=== PATIENT | female | born 1985 | race Caucasian/White ===

== ENCOUNTER → 2018-11-14 16:40 | Outpatient (CLI) | payer MEDICAID, SELFPAY | PROVIDERS: PCP Emergency Medicine; Visit Provider Emergency Medicine | DX: R07.9 Chest pain, unspecified (principal) | CPT/HCPCS: 93005 ==

== ENCOUNTER → 2018-11-16 08:18 | Outpatient (CLI) | payer MEDICAID, SELFPAY | PROVIDERS: PCP Emergency Medicine; Visit Provider Emergency Medicine | DX: R07.9 Chest pain, unspecified (principal) | CPT/HCPCS: 93017 ==

== ENCOUNTER 2020-07-28 20:13 | Emergency (ER) | payer OTHER, SELFPAY ==
[2020-07-28 20:24] VITALS: BP 127/81; PULSE 81; RESP 17; O2SAT 97; BMI 30.2
[2020-07-28 20:29] VITALS: BP 127/81; PULSE 81; RESP 17; TEMP 36.7; O2SAT 97; BMI 30.3
--- NOTE | 2020-07-28 20:29 | HMH.EDUTC ---
[facility] [place] Disposition Clinical Impression: Sinusitis Qualifiers: Sinusitis location: maxillary Chronicity: acute Recurrence: non-recurrent Qualified Code(s): J01.00 - Acute maxillary sinusitis, unspecified Disposition: Home, Self-Care Condition on Discharge: Good Instructions: DI for Sinusitis Additional Instructions: We have tested you for COVID19. These results should be available tomorrow night/Wednesday morning. Prescriptions: Amoxicillin/Potassium Clav [Augmentin 875-125 Tablet] 1 tab PO Q12H 10 Days #20 tab Transmission Status: Pending to [id number] predniSONE [Prednisone 20mg Tab] 20 mg PO BID 5 Days #10 tab Transmission Status: Pending to [id number] Referrals: Doyle Pastrana [Primary Care Provider] - Time of Disposition: 20:38 Medical Decision Making - Abdulkadir Inquiry Pt receiving controlled substance: No Vital Signs: 07/28/20 20:24 Pulse Rate [Right Brachial] 81 Respiratory Rate 17 Blood Pressure [Right Arm] 127/81 Blood Pressure Mean [Right Arm] 96 Blood Pressure Source [Right Arm] Automatic Cuff Blood Pressure Position [Right Arm] Sitting 02 Sat by Pulse Oximetry 97 Oxygen Delivery Method Room Air [facility] [place] HPI - General Stated complaint: cough dizzy,weakness,congestion Time Seen by Provider: 07/28/20 20:29 Mode of Arrival: Family Vehicle Source of Information: Patient Limitations: No Limitations Description of Symptoms (Recalled from Triage Doc. by RN): began approx 7 days ago with alelrgy/sinus symptoms, cough that was productive and now just presents with intermittent sinus related issues. afebrile. stated she has 6 kids at home and they all had it as well. hasn't been on any steroids or antibiotics recently - History of Present Illness Provider Complaint: Cough, sinus pain and pressure, sore throat, fatigue X 6 days. Unable to smell coffee but also has significant nasal congestion. No fever, body aches, or chills. No vomiting or diarrhea. Onset (ago): day(s) (6) Location: face Consistency: constant Relieving factors: none Exacerbating factors: none Associated symptoms: denies other symptoms Treatments prior to arrival: none - Related Data Home Medications Medication Instructions Recorded Confirmed ranitidine HCl 150 mg tablet 150 mg PO BID tab 11/24/17 12/05/18 loratadine 10 mg tablet PO 30 Days #30 tab 09/20/18 12/05/18 Previous Rx's Medication Instructions Recorded estradiol 2 mg tablet 4 mg PO DAILY #60 tab 10/05/18 norgestimate 0.25 mg-ethinyl 1 tab PO DAILY #28 tab 05/01/19 estradiol 35 mcg tablet Azithromycin [Z-Eliceo 250mg Tab*] 250 mg PO UD DOSE PK #6 tab 07/03/19 predniSONE [Prednisone 20mg 20 mg PO BID 5 Days #10 tab 07/03/19 Tab] ferrous sulfate 325 mg (65 mg 325 mg PO DAILY #30 tab 10/20/19 iron) tablet prenat.vits,graham,rvg-prxy-ovvtk 1 tab PO ONCE #30 tab 10/20/19 levonorgestrel-ethinyl estradiol 1 tab PO DAILY #84 tab 04/01/20 0.1 mg-20 mcg tablet Amoxicillin/Potassium Clav 1 tab PO Q12H 10 Days #20 tab 07/28/20 [Augmentin 875-125 Tablet] predniSONE [Prednisone 20mg 20 mg PO BID 5 Days #10 tab 07/28/20 Tab] Allergies Allergy/AdvReac Type Severity Reaction Status Date / Time codeine Allergy Unknown I-HIVES Verified 12/05/18 10:35 [facility] History - Hepatitis A Screen Attestation statement:: This patient has been screened for Hepatitis A risk factors. I have reviewed the patient's past medical history: Yes Laterality Cases: Bilateral: Other Amputation: No Fractures: No - Social History Smoking Status: Current every day smoker Tobacco Type: cigarettes # Packs/Day (cigarettes): 1 Alcohol Intake: never Occupational Status: employed Housing: house Family Hx:: No significant family history Comment: Father,Mother Alive [employer] history: Spontaneous ROS Obtained: Yes All systems reviewed & no additional complaints - Constitutional Constitutional: Denies body ache, Denies chills, Reports fat
[2020-07-28 20:51] VITALS: BP 127/81; PULSE 81; RESP 17; TEMP 36.7; O2SAT 97
[2020-07-30 08:35] LABS: Covid-19 Nasal PCR Sendout Lex NOT DETECTED
== END 2020-07-28 20:52 | disposition home or self-care (01) ==
PROVIDERS: Emergency Provider Physician Assistant; PCP Family Medicine
DX: J01.00 Acute maxillary sinusitis, unspecified (principal); F17.210 Nicotine dependence, cigarettes, uncomplicated; Z88.5 Allergy status to narcotic agent; Z20.828 Contact with and (suspected) exposure to other viral communicable diseases
CPT/HCPCS: 96372; 99202; J1030; U0004

== ENCOUNTER 2021-11-20 17:59 | Emergency (ER) | payer OTHER, SELFPAY ==
--- NOTE | 2021-11-20 17:55 | ECG_ITS ---
APPROVED REPORT Exam: Resting ECG HR:67 bpm ECG Measurements Heart Rate 67 AXES MO 131 P 55 QRSd 86 QRS 89 QT 424 T 48 QTc 440 Conclusion SINUS RHYTHM NORMAL ECG UNCONFIRMED REPORT Electronically signed by : Sim Melgoza MD 11/20/2021 21:10:53
[2021-11-20 17:59] VITALS: BP 116/81; PULSE 74; RESP 16; TEMP 36.8; O2SAT 99; BMI 23.8
--- NOTE | 2021-11-20 18:35 | XR_ITS ---
PROCEDURE INFORMATION: Exam: XR Chest Exam date and time: 11/20/2021 6:35 PM Age: 36 years old Clinical indication: Sternal or substernal pain; Additional info: Weakness, cp TECHNIQUE: Imaging protocol: XR of the chest. Portable AP upright exam 6:44 p.m. Views: 1 view. COMPARISON: No relevant prior studies available. FINDINGS: Lungs: No acute pulmonary findings. No pulmonary consolidation. Lung volumes within normal limits. Pleural spaces: Unremarkable. No significant pleural effusion. No pneumothorax. Heart/Mediastinum: The cardiac silhouette is normal. Bones/joints: There is no evidence of acute fracture, as visualized. Sternum is not well seen on this portable AP exam. IMPRESSION: No acute findings.
--- NOTE | 2021-11-20 18:52 | HMH.EDGENADL ---
ED Disposition Clinical Impression: COVID-19 virus infection, Atypical chest pain, EKG abnormality Disposition: Home, Self-Care Condition on Discharge: Good Additional Instructions: Rest, drink plenty of fluids. Tylenol or Ibuprofen for fever and/or aches and pains. Monitor your symptoms. IF YOU HAVE AN EMERGENCY WARNING SIGN (INCLUDING TROUBLE BREATHING), SEEK EMERGENCY MEDICAL CARE IMMEDIATELY. COVID-19 Isolation: People with COVID-19 should isolate for 5 days. Then if they are asymptomatic (no symptoms) or their symptoms are resolving (without fever for 24 hours), follow that by 5 days of wearing a mask when around others to minimize the risk of infecting people you encounter. If you test positive for COVID-19 and never develop symptoms, day 0 is the day of your positive viral test (based on the date you were tested) and day 1 is the first full day after your positive test. If you develop symptoms after testing positive, your 5-day isolation period must start over. Day 0 is your first day of symptoms. Day 1 is the first full day after your symptoms developed. What to do: Stay in a separate room from other household members, if possible. Use a separate bathroom, if possible. Avoid contact with other members of the household and pets. Don?t share personal household items, like cups, towels, and utensils. Wear a mask when around other people if able. Additional instructions for CHEST PAIN: See your physician as soon as possible for further evaluation. Return immediately if worsening chest pain, vomiting, shortness of breath, fever, coughing of blood. Referrals: Doyle Pastrana [Primary Care Provider] - - Critical Care Critical Care Time: No Attestation: On 11/20/21, the high probability of a clinically significant, sudden or life threatening deterioration of the following system(s) required my full and direct attention, intervention and personal management. The time I documented below is in addition to time spent performing reported procedures but includes the following listed in this critical care notation. Medical Decision Making - Abdulkadir Pizarro Pt receiving controlled substance: No Vital Signs: 11/20/21 17:59 Temperature 98.3 F Temperature Source Oral Pulse Rate [Right Radial] 74 Respiratory Rate 16 Blood Pressure [Right Arm] 116/81 Blood Pressure Mean [Right Arm] 92 Blood Pressure Source [Right Arm] Automatic Cuff Blood Pressure Position [Right Arm] Sitting 02 Sat by Pulse Oximetry 99 Oxygen Delivery Method Room Air - Lab Data Lab Results 11/20/21 18:45: WBC 8.8, RBC 4.89, Hgb 15.3, Hct 47.6 H, MCV 97.3, MCH 31.2, MCHC 32.1, RDW 12.7, Plt Count 234, MPV 8.3, Neut % (Auto) 52.4, Lymph % (Auto) 40.6, Thayer % (Auto) 3.2, Eos % (Auto) 0.7, Baso % (Auto) 3.2 H, Neut # (Auto) 4.6, Lymph # (Auto) 3.6, Thayer # (Auto) 0.3, Eos # (Auto) 0.1, Baso # (Auto) 0.3 H 11/20/21 18:45: Sodium 136, Potassium 3.7, Chloride 102, Carbon Dioxide 30, Anion Gap 7.7, BUN 6 L, Creatinine 0.50 L, Estimated Creat Clear 146, Estimated GFR 140, Est GFR ( Amer) 170, Glucose 92, Calcium 9.4 11/20/21 18:45: SARS-CoV-2 (PCR) Detected A, Influenza A Untype (PCR) Not detected, Influenza Type B (PCR) Not detected Result diagrams: 11/20/21 18:45 11/20/21 18:45 - Radiology Data #1 Image(s): Chest Image Reviewed: Yes I have reviewed radiologist's interpretation PROCEDURE INFORMATION: Exam: XR Chest Exam date and time: 11/20/2021 6:35 PM Age: 36 years old Clinical indication: Sternal or substernal pain; Additional info: Weakness, cp TECHNIQUE: Imaging protocol: XR of the chest. Portable AP upright exam 6:44 p.m. Views: 1 view. COMPARISON: No relevant prior studies available. FINDINGS: Lungs: No acute pulmonary findings. No pulmonary consolidation. Lung volumes within normal limits. Pleural spaces: Unremarkable. No significant pleural effusion. No pneumothorax. Heart/Mediastinum:
[2021-11-20 18:55] LABS: Influenza A, PCR Not Detected (NotDetected); Influenza B, PCR Not Detected (NotDetected)
[2021-11-20 19:04] LABS: Basophils # 0.3 K/mm3 (0-0.2); Basophils % 3.2 % (0.1-2.0); Eosinophils # 0.1 K/mm3 (0.0-0.4); Eosinophils % 0.7 % (0.1-12.0); Hematocrit 47.6 % (37.0-47.0); Hemoglobin 15.3 g/dL (12.2-16.2); Lymphocytes # 3.6 K/mm3 (0.7-4.5); Lymphocytes % 40.6 % (10-50); Mean Corpuscular HGB Conc 32.1 g/dL (31.8-35.4); Mean Corpuscular Hemoglobin 31.2 pg (27.0-31.2); Mean Corpuscular Volume 97.3 fl (81-99); Mean Platelet Volume 8.3 fl (7.4-10.4); Monocytes # 0.3 K/mm3 (0.1-1.0); Monocytes % 3.2 % (1.7-9.3); Neutrophils # 4.6 K/mm3 (1.8-7.8); Neutrophils % 52.4 % (37.0-80.0); Platelet Count 234 K/mm3 (142-424); Red Blood Count 4.89 M/mm3 (4.20-5.40); Red Cell Distribution Width 12.7 % (11.5-17.5); White Blood Count 8.8 K/mm3 (4.8-10.8)
[2021-11-20 19:08] LABS: Anion Gap 7.7 mEq/L (5-15); Blood Urea Nitrogen 6 mg/dl (7-17); Calcium 9.4 mg/dl (8.4-10.2); Carbon Dioxide 30 mmol/L (22.0-30.0); Chloride 102 mmol/L (98-107); Creatinine Clearance Estimated 146 mL/min (50-200); Estimated Glomerular Filt Rate 140 ml/min (>60); GFR (African American) 170 ML/MIN (>60); Glucose 92 mg/dl (74-100); Potassium 3.7 mmoL/L (3.5-5.1); Sodium 136 mmol/L (136-145)
[2021-11-20 19:23] LABS: Coronavirus 19, PCR Detected (NotDetected)
[2021-11-20 19:50] VITALS: BP 120/80; PULSE 70; RESP 20; TEMP 36.8; O2SAT 97
== END 2021-11-20 19:55 | disposition home or self-care (01) ==
PROVIDERS: Emergency Provider Emergency Medicine; PCP Family Medicine
DX: U07.1 COVID-19 (principal); R07.89 Other chest pain; F17.210 Nicotine dependence, cigarettes, uncomplicated
CPT/HCPCS: 71045; 80048; 85025; 93005; 99283; C9803; U0003; U0005

== ENCOUNTER 2022-01-17 18:28 | Emergency (ER) | payer OTHER, SELFPAY ==
[2022-01-17 18:35] VITALS: BP 116/76; PULSE 76; RESP 20; TEMP 36.9; O2SAT 97; BMI 25.4
--- NOTE | 2022-01-17 18:50 | HMH.EDUTC ---
[facility] – [place], [place] Disposition Clinical Impression: Strep throat Disposition: Home, Self-Care Condition on Discharge: Good Instructions: Strep Throat, DI for Strep Throat Additional Instructions: *Monitor Temp, Over the counter Motrin or Tylenol as directed/as needed Tylenol every 4 hours and Motrin every 6 hours (as long as your family doctor has told you that you can take it) for fever or pain. and straight to ER if unable to lower temp less than 101.0 after medication given *Warm salt water gargles may help to soothe the throat *Throat Lozenges *Warm fluids like tea with honey may help to soothe the throat *Sleep elevated *Humidifier/Vaporizer *If you did not take Penicillin shot or was unable to, start taking antibiotic immediately and make sure that you take it for the FULL length of time although you should start to feel better in 24-48 hours *change toothbrush and toothpaste 24-48 hours after starting to take antibiotics so you do not reinfect yourself Monitor Temp. Tylenol and/or Ibuprofen as needed. ER if fever is no less than 101 despite alternating Tylenol and Ibuprofen * Encourage fluids, water, Gatorade, powerade, pedialyte if infant/toddler/or child *Cold fluids, popsicles and ice cream may feel good on his throat Follow up IMMEDIATELY for new or worsening symptoms or no Noticeable improvement over the next 48-72 hours. 911 for difficulty breathing or swallowing Prescriptions: Amoxicillin [Amoxicillin 500mg Cap] 500 mg PO BID 10 Days #20 cap Transmission Status: Received by [facility] Fluticasone Propionate [Flonase 50mcg nasal spray 16gm] 1 spr NS DAILY #1 each Transmission Status: Received by [facility] Referrals: Doyle Pastrana [Primary Care Provider] - As needed Time of Disposition: 19:24 Medical Decision Making - Abdulkadir Inquiry Pt receiving controlled substance: No Abdulkadir was queried for this patient: No Vital Signs: 01/17/22 18:35 01/17/22 19:46 Temperature 98.4 F 98.4 F Temperature Source Oral Pulse Rate 76 Pulse Rate [Right Brachial] 76 Respiratory Rate 20 20 Blood Pressure 116/76 Blood Pressure [Right Arm] 116/76 Blood Pressure Mean [Right Arm] 89 Blood Pressure Source [Right Arm] Automatic Cuff Blood Pressure Position [Right Arm] Sitting 02 Sat by Pulse Oximetry 97 Oxygen Delivery Method Room Air - Lab Data Lab results reviewed: Yes: I reviewed the patient's lab results. Lab Results 01/17/22 18:46: Strep [facility] Positive A 01/17/22 18:47: Influenza Type A Ag Negative, Influenza Type B Ag Negative Orders (Tests/Meds): ED MEDICATIONS Discontinued Medications Generic Name Dose Route Start Last Admin Trade Name Annabella PRN Reason Stop Dose Admin Amoxicillin 500 mg 01/17/22 19:05 01/17/22 19:08 Amoxicillin 500mg Capsule PO 01/17/22 19:06 500 mg ONCE ONE Administration [facility] [place], [place] HPI - General Stated complaint: covid test, sore throat kalani Time Seen by Provider: 01/17/22 18:50 Mode of Arrival: Ambulatory Source of Information: Patient Limitations: No Limitations Description of Symptoms (Recalled from Triage Doc. by RN): PATIENT C/O SORE THROAT, RUNNY NOSE, CONGESTION, BODY ACHES AND FATIGUE SINCE WEDNESDAY HEENT Symptoms (Recalled from RN notes): Yes Resp Symptoms (Recalled from RN notes): No Skin Symptoms (Recalled from RN notes): No MS Symptoms (Recalled from RN notes): No Functional Status (Recalled from RN notes): WNL - History of Present Illness Provider Complaint: Patient states that she hasnt felt well since Wednesday States that her kids have been sick also States that she has been having bodyaches, chills, sore throat sinus pain and pressure and over all not feeling well States that today she was still not feeling well so she and her came in to get checked out - Related Data Home Medications Medication Instructions Recorded Confirmed ranitidine HCl 150 mg tablet 150 mg PO BID tab 11/24/17 12/05/18 roney
[2022-01-17 18:52] LABS: UTC Strep Screen (Rapid) Positive (Negative)
[2022-01-17 18:56] LABS: UTC Influenza A Antigen Negative (Negative); UTC Influenza B Antigen Negative (Negative)
[2022-01-17 19:46] VITALS: BP 116/76; PULSE 76; RESP 20; TEMP 36.9; O2SAT 97
== END 2022-01-17 20:11 | disposition home or self-care (01) ==
PROVIDERS: Emergency Provider Nurse Practitioner; PCP Family Medicine
DX: J02.0 Streptococcal pharyngitis (principal); F17.210 Nicotine dependence, cigarettes, uncomplicated
CPT/HCPCS: 87804; 87880; 99212; G0463

== ENCOUNTER 2022-01-19 11:51 | Emergency (ER) | payer OTHER, SELFPAY ==
--- NOTE | 2022-01-19 14:53 | HMH.EDUTC ---
[facility] [place] Disposition Clinical Impression: Strep throat Disposition: Home, Self-Care Condition on Discharge: Good Instructions: Strep Throat, DI for Strep Throat Additional Instructions: Drink plenty of fluids. Take tylenol or ibuprofen for pain or fever. Take the medications as directed. Follow up with your regular doctor. GO TO THE ER FOR ANY WORSENING SYMPTOMS Stop the antibiotics that you are already on and start the new antibiotic (cefdinir). Prescriptions: Ondansetron [Zofran 4mg ODT] 4 mg PO Q8HP PRN #20 tab PRN Reason: Nausea Transmission Status: Received by [facility] methylPREDNISolone [Medrol] 4 mg PO DIRECTED 6 Days #21 packet Transmission Status: Received by [facility] Cefdinir [Omnicef 300mg Capsule] 300 mg PO BID #20 cap Transmission Status: Received by [facility] Referrals: Doyle Pastrana [Primary Care Provider] - Time of Disposition: 15:33 Medical Decision Making - Medical Records Medical records reviewed: No: I reviewed the patient's medical records. - Abdulkadir Inquiry Pt receiving controlled substance: No Vital Signs: 01/19/22 15:21 01/19/22 16:03 Temperature 98.9 F 98.5 F Temperature Source Oral Oral Pulse Rate 71 Pulse Rate [Left Radial] 78 Respiratory Rate 17 18 Blood Pressure 110/74 Blood Pressure [Right Arm] 105/76 L Blood Pressure Mean [Right Arm] 85 02 Sat by Pulse Oximetry 99 Oxygen Delivery Method Room Air Room Air - Lab Data Lab results reviewed: Yes: I reviewed the patient's lab results. Lab Results 01/19/22 15:06: Strep [facility]n [facility] Positive A [facility] [place] HPI - General Stated complaint: sore throat Time Seen by Provider: 01/19/22 14:53 - History of Present Illness Provider Complaint: She states that she was diagnosed with strep throat 5 days ago. She has been taking the prescribed antibiotic but she is not getting better. - Related Data Home Medications Medication Instructions Recorded Confirmed ranitidine HCl 150 mg tablet 150 mg PO BID tab 11/24/17 12/05/18 loratadine 10 mg tablet PO 30 Days #30 tab 09/20/18 12/05/18 Previous Rx's Medication Instructions Recorded estradiol 2 mg tablet 4 mg PO DAILY #60 tab 10/05/18 norgestimate 0.25 mg-ethinyl 1 tab PO DAILY #28 tab 05/01/19 estradiol 35 mcg tablet Azithromycin [Z-Eliceo 250mg Tab*] 250 mg PO UD DOSE PK #6 tab 07/03/19 predniSONE [Prednisone 20mg 20 mg PO BID 5 Days #10 tab 07/03/19 Tab] Amoxicillin/Potassium Clav 1 tab PO Q12H 10 Days #20 tab 07/28/20 [Augmentin 875-125 Tablet] predniSONE [Prednisone 20mg 20 mg PO BID 5 Days #10 tab 07/28/20 Tab] levonorgestrel-ethinyl estradiol See Rx Instructions .ROUTE 04/01/21 0.1 mg-20 mcg tablet .COMPLEX #84 tab ferrous sulfate 325 mg (65 mg See Rx Instructions .ROUTE 08/12/21 iron) tablet .COMPLEX #30 tab vitamin with calcium See Rx Instructions .ROUTE 09/05/21 no.72-iron 27 mg-folic acid 1 mg .COMPLEX #30 tab tablet Amoxicillin [Amoxicillin 500mg 500 mg PO BID 10 Days #20 cap 01/17/22 Cap] Fluticasone Propionate [Flonase 1 spr NS DAILY #1 each 01/17/22 50mcg nasal spray 16gm] Cefdinir [Omnicef 300mg Capsule] 300 mg PO BID #20 cap 01/19/22 Ondansetron [Zofran 4mg ODT] 4 mg PO Q8HP PRN #20 tab 01/19/22 methylPREDNISolone [Medrol] 4 mg PO DIRECTED 6 Days #21 01/19/22 packet Allergies Allergy/AdvReac Type Severity Reaction Status Date / Time codeine Allergy Unknown I-HIVES Verified 07/29/20 09:33 [facility] History - Hepatitis A Screen Attestation statement:: This patient has been screened for Hepatitis A risk factors. I have reviewed the patient's past medical history: Yes Laterality Cases: Bilateral: Other Amputation: No Fractures: No - Social History Smoking Status: Current every day smoker Tobacco Type: cigarettes # Packs/Day (cigarettes): 1 Alcohol Intake: never Occupational Status: employed Housing: house Fam
[2022-01-19 15:20] LABS: UTC Strep Screen (Rapid) Positive (Negative)
[2022-01-19 15:21] VITALS: BP 105/76; PULSE 78; RESP 17; TEMP 37.2; O2SAT 99; BMI 25.2
[2022-01-19 16:03] VITALS: BP 110/74; PULSE 71; RESP 18; TEMP 36.9; O2SAT 99
== END 2022-01-19 16:05 | disposition home or self-care (01) ==
PROVIDERS: Emergency Provider Nurse Practitioner Family; PCP Family Medicine
DX: J02.0 Streptococcal pharyngitis (principal); F17.210 Nicotine dependence, cigarettes, uncomplicated; Z88.5 Allergy status to narcotic agent
CPT/HCPCS: 87880; 99212; G0463

== ENCOUNTER 2022-08-11 20:22 | Emergency (ER) | payer OTHER, SELFPAY ==
[2022-08-11 20:24] VITALS: BP 100/55; PULSE 64; RESP 16; TEMP 36.9; O2SAT 98; BMI 24.7
[2022-08-11 21:24] LABS: Coronavirus 19, PCR Not Detected (NotDetected); Influenza A, PCR Not Detected (NotDetected); Influenza B, PCR Not Detected (NotDetected)
--- NOTE | 2022-08-11 22:03 | HMH.EDURI ---
Discharge Plan Disposition Patient Disposition: Home, Self-Care Condition: Good Prescriptions Prescriptions: New levofloxacin 500 mg tablet 500 mg PO DAILY Qty: 7 0RF No Action ranitidine HCl [Zantac] 150 mg tablet 150 mg PO BID loratadine 10 mg tablet PO 30 Days Qty: 30 estradiol 2 mg tablet 4 mg PO DAILY Qty: 60 1RF norgestimate-ethinyl estradiol [Sprintec (28)] 0.25-35 mg-mcg tablet 1 tab PO DAILY Qty: 28 11RF ferrous sulfate [FeroSul] 325 mg (65 mg iron) tablet See Rx Instructions .ROUTE .COMPLEX Qty: 30 11RF Dose Instruction: TAKE ONE TABLET BY MOUTH EVERY DAY Rx Instructions: TAKE ONE TABLET BY MOUTH EVERY DAY WesTab Plus 27 mg iron- 1 mg tablet See Rx Instructions .ROUTE .COMPLEX Qty: 30 11RF Dose Instruction: TAKE ONE TABLET BY MOUTH EVERY DAY Rx Instructions: TAKE ONE TABLET BY MOUTH EVERY DAY levonorgestrel-ethinyl estrad [Vienva] 0.1-20 mg-mcg tablet 1 tab PO DAILY Qty: 84 3RF amoxicillin 500 MG capsule 500 mg PO BID 10 Days Qty: 20 0RF fluticasone propionate 120 SPR/BOT bottle 1 spr NS DAILY Qty: 1 0RF Rx Instructions: one spray in each nostril daily azithromycin 250 MG tablet 250 mg PO UD DOSE PK Qty: 6 0RF Rx Instructions: Take two (2) tablets today, then one (1) tablet days #2 thru #5 prednisone 20 MG tablet 20 mg PO BID 5 Days Qty: 10 0RF prednisone 20 MG tablet 20 mg PO BID 5 Days Qty: 10 0RF amoxicillin-pot clavulanate 1 EACH tablet 1 tab PO Q12H 10 Days Qty: 20 0RF methylprednisolone 4 MG tablets,dose pack 4 mg PO DIRECTED 6 Days Qty: 21 0RF ondansetron 4 MG tablet,disintegrating 4 mg PO Q8HP PRN (Reason: Nausea) Qty: 20 0RF cefdinir 300 MG capsule 300 mg PO BID Qty: 20 0RF Referrals Follow up/Referrals: Doyle Pastrana [Primary Care Provider] - See instructions Clinical Impressions Clinical Impression: Bronchitis Instructions Patient Instructions: DI for Acute Bronchitis Discharge ED Provider: Kristofer Juarez URI/Sore Throat HPI General Chief Complaint: Upper Respiratory Infection Stated Complaint: fevermsore throat,cough,BOURGEOIS Time Seen by Provider: 08/11/22 22:04 Mode of Arrival: Ambulatory Source of Information: Patient and Medical Record Limitations: No Limitations Description of Symptoms (Recalled from ER Triage Doc. by RN): pt states that she has had sinus issues, sore throat, headache, weakness dizzieness and just miserable feeling for 1 week the pt states her son had some amoxicillin and she has been taking that and it cleared up her green sinus ddrainage. pt states she was seen by the dr and ordered breathing treatments but the made her shaky so she isnt taking them. pt also stated she was tested and neg for covid and strep this week pt is also complaining of lower left rib pain History of Present Illness HPI Narrative: not feeling well over the last week with sore throat and cough with green drainage has taken amox MD Complaint: cough and sore throat Onset (ago): day(s) Duration: intermittent Severity: moderate Description of mucous: green Able to tolerate fluids by mouth: Yes Context: sick contacts Associated symptoms: sore throat Treatments prior to arrival: acetaminophen, ibuprofen, cold medicine and antibiotics Related Data Home Medications Medication Instructions Recorded Confirmed ranitidine HCl 150 mg tablet 150 mg PO BID 11/24/17 12/05/18 (Zantac) loratadine 10 mg tablet PO 30 days #30 tabs 09/20/18 12/05/18 Previous Rx's Medication Instructions Recorded estradiol 2 mg tablet 4 mg PO DAILY #60 tabs 10/05/18 norgestimate 0.25 mg-ethinyl 1 tab PO DAILY #28 tabs 05/01/19 estradiol 35 mcg tablet (Sprintec (28)) azithromycin 250 mg tablet 250 mg PO UD DOSE PK #6 tabs 07/03/19 prednisone 20 mg tablet 20 mg PO BID 5 days #10 tabs 07/03/19 amoxicillin 875 mg-potassium 1 tab PO Q12H 10 days #20 tabs 07/28/20
[2022-08-11 22:53] VITALS: BP 118/73; PULSE 89; RESP 18; TEMP 36.9; O2SAT 98
--- NOTE | 2022-08-11 22:55 | PC.NURSE ---
PT STATES SHE DOES NOT WANT TO WAIT ANY LONGER AND SHE WILL LOOK AT THE PATIENT PORTAL TOMORROW.
== END 2022-08-11 22:55 | disposition home or self-care (01) ==
PROVIDERS: Emergency Provider Emergency Medicine; PCP Family Medicine
DX: J40 Bronchitis, not specified as acute or chronic (principal); Z88.6 Allergy status to analgesic agent; Z72.0 Tobacco use
CPT/HCPCS: 99283; C9803; U0003; U0005

== ENCOUNTER 2022-08-13 13:03 | Emergency (ER) | payer OTHER, SELFPAY ==
[2022-08-13] VITALS (7 sets, daily range): BP systolic 94–118; BP diastolic 65–83; PULSE 57–70; RESP 14–21; TEMP 36.6–36.7; O2SAT 97–100; BMI 24.7
--- NOTE | 2022-08-13 12:59 | ECG_ITS ---
APPROVED REPORT Exam: Resting ECG HR:65 bpm ECG Measurements Heart Rate 65 AXES IN 126 P 50 QRSd 88 QRS 62 QT 419 T 40 QTc 430 Conclusion SINUS RHYTHM NORMAL ECG UNCONFIRMED REPORT Electronically signed by : Sim Melgoza MD 08/13/2022 20:05:19
--- NOTE | 2022-08-13 13:14 | PC.NURSE ---
ED MD AT BEDSIDE FOR EVALUATION
--- NOTE | 2022-08-13 13:18 | PC.NURSE ---
called [facility] for stress test results, they didd not have her on file
--- NOTE | 2022-08-13 13:19 | XR_ITS ---
FINAL REPORT CLINICAL HISTORY: cp COMPARISON: November 2021 FINDINGS: The heart size is normal. The mediastinum is within normal limits. There is no acute cardiopulmonary process. There is no pleural effusion. There is no pneumothorax. The bony thorax is intact. IMPRESSION: No acute cardiopulmonary process. Reviewed, Interpreted and Dictated by Omi Neal MD Transcribed by Sukhdev Medley Authenticated and [facility]
--- NOTE | 2022-08-13 13:21 | [facility].EDCP ---
Discharge Plan Disposition Patient Disposition: Home, Self-Care Condition: Good Prescriptions Prescriptions: No Action ranitidine HCl [Zantac] 150 mg tablet 150 mg PO BID loratadine 10 mg tablet PO 30 Days Qty: 30 estradiol 2 mg tablet 4 mg PO DAILY Qty: 60 1RF norgestimate-ethinyl estradiol [Sprintec (28)] 0.25-35 mg-mcg tablet 1 tab PO DAILY Qty: 28 11RF ferrous sulfate [FeroSul] 325 mg (65 mg iron) tablet See Rx Instructions .ROUTE .COMPLEX Qty: 30 11RF Dose Instruction: TAKE ONE TABLET BY MOUTH EVERY DAY Rx Instructions: TAKE ONE TABLET BY MOUTH EVERY DAY WesTab Plus 27 mg iron- 1 mg tablet See Rx Instructions .ROUTE .COMPLEX Qty: 30 11RF Dose Instruction: TAKE ONE TABLET BY MOUTH EVERY DAY Rx Instructions: TAKE ONE TABLET BY MOUTH EVERY DAY levonorgestrel-ethinyl estrad [Vienva] 0.1-20 mg-mcg tablet 1 tab PO DAILY Qty: 84 3RF amoxicillin 500 MG capsule 500 mg PO BID 10 Days Qty: 20 0RF fluticasone propionate 120 SPR/BOT bottle 1 spr NS DAILY Qty: 1 0RF Rx Instructions: one spray in each nostril daily azithromycin 250 MG tablet 250 mg PO UD DOSE PK Qty: 6 0RF Rx Instructions: Take two (2) tablets today, then one (1) tablet days #2 thru #5 prednisone 20 MG tablet 20 mg PO BID 5 Days Qty: 10 0RF prednisone 20 MG tablet 20 mg PO BID 5 Days Qty: 10 0RF amoxicillin-pot clavulanate 1 EACH tablet 1 tab PO Q12H 10 Days Qty: 20 0RF methylprednisolone 4 MG tablets,dose pack 4 mg PO DIRECTED 6 Days Qty: 21 0RF ondansetron 4 MG tablet,disintegrating 4 mg PO Q8HP PRN (Reason: Nausea) Qty: 20 0RF cefdinir 300 MG capsule 300 mg PO BID Qty: 20 0RF levofloxacin 500 mg tablet 500 mg PO DAILY Qty: 7 0RF Referrals Follow up/Referrals: Doyle Pastrana [Primary Care Provider] - See instructions Activity Restrictions/Add. Instructions Additional Instructions/Restrictions: Follow-up tomorrow morning at 11 AM with the tire vulcanizer, Dr. Greene. Avoid exertion. Return for worsening pain or other concerns. Take an aspirin daily until evaluated by the tire vulcanizer. Clinical Impressions Clinical Impression: Acute chest pain Discharge ED Provider: Tanner Gupta Chest Pain HPI General Chief Complaint: Chest Pain Stated Complaint: CHEST PAIN Time Seen by Provider: 08/13/22 13:07 Mode of Arrival: Ambulatory Limitations: No Limitations Description of Symptoms (Recalled from ER Triage Doc. by RN): PT REPORTS CHEST PAIN, UNABLE TO GIVE ACCURATE TIME OF PRESENTATION. REPORTS RADIATION TO LEFT ARM AND CONFUSION. S.O STATES HE GAVE HER NITRO AT 1200. History of Present Illness HPI narrative: Patient presents complaining of chest pain that began earlier this morning while at rest. She describes the pain as mild to moderate and worse with deep breaths. She denies vomiting she does note some shortness of air. She denies recent productive cough. Related Data Home Medications Medication Instructions Recorded Confirmed ranitidine HCl 150 mg tablet 150 mg PO BID 11/24/17 12/05/18 (Zantac) loratadine 10 mg tablet PO 30 days #30 tabs 09/20/18 12/05/18 Previous Rx's Medication Instructions Recorded estradiol 2 mg tablet 4 mg PO DAILY #60 tabs 10/05/18 norgestimate 0.25 mg-ethinyl 1 tab PO DAILY #28 tabs 05/01/19 estradiol 35 mcg tablet (Sprintec (28)) azithromycin 250 mg tablet 250 mg PO UD DOSE PK #6 tabs 07/03/19 prednisone 20 mg tablet 20 mg PO BID 5 days #10 tabs 07/03/19 amoxicillin 875 mg-potassium 1 tab PO Q12H 10 days #20 tabs 07/28/20 clavulanate 125 mg tablet prednisone 20 mg tablet 20 mg PO BID 5 days #10 tabs 07/28/20 ferrous sulfate 325 mg (65 mg See Rx Instructions .Route 08/12/21 iron) tablet (FeroSul) .COMPLEX #30 tabs vitamin with calcium See Rx Instructions .Route 09/05/21 no.72-iron 27 mg-folic acid 1 mg .COMPLEX #30 tabs tablet (WesTab Plus) amoxicilli
[2022-08-13 13:26] LABS: Basophils # 0.2 K/mm3 (0-0.2); Basophils % 1.5 % (0.1-2.0); Eosinophils # 0.2 K/mm3 (0.0-0.4); Eosinophils % 1.1 % (0.1-12.0); Hematocrit 43.8 % (37.0-47.0); Hemoglobin 14.6 g/dL (12.2-16.2); Lymphocytes # 5.3 K/mm3 (0.7-4.5); Lymphocytes % 36.3 % (10-50); Mean Corpuscular HGB Conc 33.4 g/dL (31.8-35.4); Mean Corpuscular Hemoglobin 31.5 pg (27.0-31.2); Mean Corpuscular Volume 94.2 fl (81-99); Mean Platelet Volume 8.3 fl (7.4-10.4); Monocytes # 0.7 K/mm3 (0.1-1.0); Monocytes % 4.7 % (1.7-9.3); Neutrophils # 8.2 K/mm3 (1.8-7.8); Neutrophils % 56.4 % (37.0-80.0); Platelet Count 340 K/mm3 (142-424); Red Blood Count 4.65 M/mm3 (4.20-5.40); Red Cell Distribution Width 12.9 % (11.5-17.5); White Blood Count 14.6 K/mm3 (4.8-10.8)
[2022-08-13 13:27] LABS: Chloride 102 mmol/L (98-107); Potassium 3.5 mmoL/L (3.5-5.1); Sodium 139 mmol/L (136-145)
[2022-08-13 13:29] LABS: Alanine Aminotransferase 14 U/L (12-78); Blood Urea Nitrogen 7 mg/dl (7-17); Creatinine Clearance Estimated 125 mL/min (50-200); Estimated Glomerular Filt Rate 113 ml/min (>60); GFR (African American) 137 ML/MIN (>60)
[2022-08-13 13:30] LABS: Albumin Level 4.3 g/dl (3.5-5.0); Albumin/Globulin Ratio 1.7 (1.1-1.8); Alkaline Phosphatase 49 U/L (38-126); Anion Gap 10.5 mEq/L (5-15); Aspartate Amino Transferase 22 U/L (14-36); Bilirubin,Total 0.2 mg/dl (0.2-1.3); Calcium 8.9 mg/dl (8.4-10.2); Carbon Dioxide 30 mmol/L (22.0-30.0); Globulin 2.6 g/dL (1.3-3.2); Glucose 108 mg/dl (74-100); Total Protein,Serum 6.9 g/dl (6.3-8.2)
[2022-08-13 13:58] LABS: Troponin I < 0.01 ng/ml (0.00-0.034)
--- NOTE | 2022-08-13 14:26 | PC.NURSE ---
ED MD AT BEDSIDE TO DISCUSS POC
--- NOTE | 2022-08-13 14:27 | PC.NURSE ---
placed call to Dr Hancock for echo and stress test results, they are to fax them
--- NOTE | 2022-08-13 14:56 | PC.NURSE ---
VERBAL ORDER FOR 2 HOUR TROP, DRAWN AND SENT TO LAB AT THIS TIME
[2022-08-13 15:23] LABS: Troponin I < 0.01 ng/ml (0.00-0.034)
--- NOTE | 2022-08-13 15:35 | PC.NURSE ---
PT SLEEPING SOUNDLY, AWAKENS EASILY. DENIES CHEST PAIN AT THIS TIME
--- NOTE | 2022-08-13 15:35 | PC.NURSE ---
Keenan Dia rounding on pts, pt and family member both sleeping comfortably
--- NOTE | 2022-08-13 15:47 | PC.NURSE ---
MD AT BEDSIDE TO DISCUSS POC
--- NOTE | 2022-08-13 15:49 | PC.NURSE ---
Dr Greene paged, Dr Gupta speaking to him
--- NOTE | 2022-08-13 15:53 | CT_ITS ---
PROCEDURE INFORMATION: Exam: CT Head Without Contrast Exam date and time: 08/13/2022 4:15 PM Age: 37 years old Clinical indication: Altered mental status/memory loss; Additional info: AMS TECHNIQUE: Imaging protocol: Computed tomography of the head without contrast. Radiation optimization: All CT scans at this facility use at least one of these dose optimization techniques: automated exposure control; mA and/or kV adjustment per patient size (includes targeted exams where dose is matched to clinical indication); or iterative reconstruction. COMPARISON: No relevant prior studies available. FINDINGS: Brain: No acute intracranial hemorrhage, cerebral edema, or midline shift. Cerebral ventricles: No hydrocephalus. Paranasal sinuses: There is a tiny mucous retention cyst in the right sphenoid sinus. The remaining paranasal sinuses are clear. Mastoid air cells: Visualized mastoid air cells are well aerated. Orbital cavities: The visualized orbits appear unremarkable. Bones/joints: No acute fracture. Soft tissues: Unremarkable. IMPRESSION: No acute intracranial abnormality.
--- NOTE | 2022-08-13 15:55 | PC.NURSE ---
PT ASSISTED TO BR TO PROVIDE URINE SPECIMEN
[2022-08-13 16:00] LABS: Microscopic, Urine URINE MICROSCOPIC (MICROSCOPIC)
[2022-08-13 16:07] LABS: Appearance,Urine CLEAR (Clear); Bilirubin,Urine Negative (Negative); Blood, Urine Negative (Negative); Color,Urine YELLOW (Yellow); Glucose,Urine (UA) Negative (Negative); Ketones,Urine Negative (Negative); Leukocyte Esterase,Urine Negative (Negative); Nitrate,Urine Negative (Negative); Protein,Urine Negative (Negative); Specific Gravity, Urine >= 1.030 (1.005-1.030); Urobilinogen,Urine 0.2 EU/dl (0.2)
[2022-08-13 16:19] LABS: Bacteria,Urine Trace /lpf; RBC,Urine Occasional #/hpf (0-3); WBC,Urine Occasional #/hpf (0-3)
--- NOTE | 2022-08-13 16:19 | PC.NURSE ---
PT TO CT AT THIS TIME
[2022-08-13 16:21] LABS: Urine Pregnancy, HCG Qual. Negative (Negative)
--- NOTE | 2022-08-13 16:24 | PC.NURSE ---
PT RETURNED FROM CT
[2022-08-13 16:55] LABS: Amphetamine/Metha Screen,Urine Positive ng/ml (<1000)
[2022-08-13 16:56] LABS: Barbiturates Screen,Urine Negative ng/ml (<200)
[2022-08-13 16:57] LABS: Benzodiazepines Screen,Urine Negative ng/ml (<200); Cannabinoid Screen,Urine Negative ng/ml (<50)
[2022-08-13 16:58] LABS: Cocaine Screen,Urine Negative ng/ml (<300)
[2022-08-13 16:59] LABS: Methadone Screen,Urine Negative ng/ml (<300); Phencyclidine Screen,Urine Negative ng/ml (<25)
[2022-08-13 17:00] LABS: Opiate Screen,Urine Negative ng/ml (<300)
--- NOTE | 2022-08-13 17:16 | PC.NURSE ---
ED MD AT BEDSIDE TO DISCUSS POC WITH PT AND S.O
== END 2022-08-13 17:35 | disposition home or self-care (01) ==
PROVIDERS: Emergency Provider Emergency Medicine; PCP Family Medicine
DX: R07.9 Chest pain, unspecified (principal)
CPT/HCPCS: 70450; 71045; 80053; 80305; 81001; 81025; 84484; 85025; 93005; 96374; 99285

== ENCOUNTER → 2022-08-14 12:21 | Outpatient (CLI) | payer OTHER, SELFPAY ==
--- NOTE | 2022-08-14 12:25 | CT_ITS ---
FINAL REPORT CLINICAL HISTORY: cp/dyspnea FINDINGS: Thin section axial CT images of the chest were obtained with contrast. 3D reformatted images were also obtained. This study was performed with techniques to keep radiation doses as low as reasonably achievable (ALARA). Individualized dose reduction techniques using automated exposure control or adjustment of mA and/or kV according to the patient''s size were employed. There is no evidence of pulmonary embolism. There is no evidence of thoracic aortic aneurysm or dissection. There is no evidence of mediastinal or hilar mass or adenopathy. There is no evidence of pulmonary mass or nodule. No localized inflammatory process is seen within the lungs. Limited images of the upper abdomen reveal a gastric diverticulum. IMPRESSION: No evidence of pulmonary embolism. No mass or localized inflammatory process. Reviewed, Interpreted and Dictated by Romeo Banks III, MD Transcribed by Sarah Gutierrez Authenticated and [facility]
== END ==
PROVIDERS: PCP Family Medicine; Visit Provider Internal Medicine Cardiovascular Disease
DX: R06.00 Dyspnea, unspecified (principal); R07.9 Chest pain, unspecified; R42 Dizziness and giddiness; R53.83 Other fatigue; Z72.0 Tobacco use
CPT/HCPCS: 71275; Q9967

== ENCOUNTER → 2022-08-21 14:26 | Outpatient (CLI) | payer OTHER, SELFPAY | PROVIDERS: PCP Family Medicine; Visit Provider Internal Medicine Cardiovascular Disease | DX: R06.00 Dyspnea, unspecified (principal); R07.9 Chest pain, unspecified; R42 Dizziness and giddiness; R53.83 Other fatigue; Z72.0 Tobacco use | CPT/HCPCS: 93306 ==

== ENCOUNTER 2022-10-05 19:11 | Emergency (ER) | payer OTHER, SELFPAY ==
[2022-10-05 20:10] VITALS: BP 131/87; PULSE 87; RESP 18; TEMP 37.2; O2SAT 100; BMI 20.8
[2022-10-05 20:35] LABS: UTC Influenza A Antigen Negative (Negative); UTC Influenza B Antigen Negative (Negative)
--- NOTE | 2022-10-05 20:52 | EXP.UTC ---
Discharge Plan Disposition Patient Disposition: Home, Self-Care Condition: Good Prescriptions Prescriptions: New ondansetron 4 mg tablet,disintegrating 4 mg PO Q8H PRN (Reason: nausea and vomiting) Qty: 10 0RF No Action citalopram 40 mg tablet 20 mg PO BID dextroamphetamine-amphetamine [Adderall] 15 mg tablet 15 mg PO DAILY albuterol sulfate [ProAir HFA] 90 mcg/actuation HFA aerosol inhaler 2 puff inhalation Q4-6H PRN Label Comments: INHALE 2 PUFFS BY MOUTH EVERY 4 HOURS NEEDED Slynd 4 mg (28) tablet 4 mg PO DAILY Label Comments: TAKE ONE TABLET BY MOUTH EVERY DAY omeprazole 40 mg capsule,delayed release(DR/EC) 40 mg PO DAILY Qty: 90 3RF famotidine [Pepcid] 20 mg tablet 20 mg PO DAILY Qty: 90 3RF WesTab Plus 27 mg iron- 1 mg tablet See Rx Instructions .ROUTE .COMPLEX Qty: 30 11RF Dose Instruction: TAKE ONE TABLET BY MOUTH EVERY DAY Rx Instructions: TAKE ONE TABLET BY MOUTH EVERY DAY levofloxacin 500 mg tablet 500 mg PO DAILY Qty: 7 0RF Referrals Follow up/Referrals: Provider,Referral, MD [Primary Care Provider] - See instructions Activity Restrictions/Add. Instructions Additional Instructions/Restrictions: Drink extra fluids with and between meals. If you have difficulty drinking, try very small amounts of water or suck on ice chips. ? Avoid fruit juices, as these do not replace minerals and can actually increase diarrhea. ? Children and adults can use sports drinks to replenish electrolytes. Younger children and infants should use products formulated for children, like oral rehydration solutions. ? Eat food in small amounts and let your stomach recover. ? Get lots of rest. You may feel tired or weak. ? No greasy or fried foods for the next 24-48 hours BRAT diet Bananas Rice Apples and [place] ? Make sure to drink plenty of liquids ? Return if needed ? Straight to ER if any life threatening symptoms ? Zofran as prescribed ? Follow up with family doctor in the next 48-72 hours if no improvement or any worsening of symptoms Clinical Impressions Clinical Impression: Viral syndrome Instructions Patient Instructions: DI for Nausea -- Adult, Nausea and Vomiting-Adult Discharge ED Provider: Nancy Monsivais [facility] [place] HPI General Stated complaint: congestion, sore throat, vomiting, h/a, body aches Mode of Arrival: Ambulatory Source of Information: Patient Limitations: No Limitations Time Seen by Provider: 10/05/22 20:52 Description of Symptoms (Recalled from Triage Doc. by RN): PATIENT C/O BODY ACHES, CHILLS, VOMITING AND FATIGUE X 3 DAYS HEENT Symptoms (Recalled from RN notes): No Resp Symptoms (Recalled from RN notes): No Skin Symptoms (Recalled from RN notes): No MS Symptoms (Recalled from RN notes): No Functional Status (Recalled from RN notes): WNL History of Present Illness Provider Complaint: Patient states that she thinks she had the flu last week States that for the last 3 days she has been having fatigue body aches, chills, and N/V Related Data Home Medications Medication Instructions Recorded Confirmed albuterol sulfate 90 mcg/actuation 2 puff inhalation Q4-6H PRN 08/14/22 08/14/22 aerosol inhaler (ProAir HFA) citalopram 40 mg tablet 20 mg PO BID 08/14/22 08/14/22 dextroamphetamine-amphetamine 15 15 mg PO DAILY 08/14/22 08/14/22 mg tablet (Adderall) drospirenone (contraceptive) 4 mg 4 mg PO DAILY 08/14/22 08/14/22 (28) tablet (Slynd) Previous Rx's Medication Instructions Recorded levofloxacin 500 mg tablet 500 mg PO DAILY #7 tabs 08/11/22 famotidine 20 mg tablet (Pepcid) 20 mg PO DAILY #90 tabs 08/14/22 omeprazole 40 mg capsule,delayed 40 mg PO DAILY #90 caps 08/14/22 release vitamin with calcium See Rx Instructions .Route 09/14/22 no.72-iron 27 mg-folic acid 1 mg .COMPLEX #30 tabs tablet (WesTab Plus) ondansetron 4
[2022-10-05 21:05] VITALS: BP 131/87; PULSE 87; RESP 18; TEMP 37.2; O2SAT 100
== END 2022-10-05 21:10 | disposition home or self-care (01) ==
PROVIDERS: Emergency Provider Nurse Practitioner
DX: R05.9 Cough, unspecified (principal); J02.9 Acute pharyngitis, unspecified; R52 Pain, unspecified; R51.9 Headache, unspecified; R11.10 Vomiting, unspecified; B34.9 Viral infection, unspecified
CPT/HCPCS: 87804; 99212; G0463

== ENCOUNTER 2023-04-17 19:21 | Emergency (ER) | payer OTHER, SELFPAY ==
[2023-04-17 19:22] VITALS: BP 112/78; PULSE 90; RESP 20; TEMP 36.7; O2SAT 99; BMI 23.0
--- NOTE | 2023-04-17 20:01 | EXP.UTC ---
Discharge Plan Disposition Patient Disposition: Home, Self-Care Condition: Good Prescriptions Prescriptions: New amoxicillin [amoxicillin] 875 mg tablet 875 mg PO Q12H Qty: 20 0RF methylprednisolone 4 mg Tablets,Dose Pack 4 mg PO DIRECTED Qty: 21 0RF ondansetron 4 mg Tablet,Disintegrating 4 mg PO Q8H PRN (Reason: Nausea) Qty: 12 0RF No Action citalopram 40 mg tablet 20 mg PO BID dextroamphetamine-amphetamine [Adderall] 15 mg tablet 15 mg PO DAILY albuterol sulfate [ProAir HFA] 90 mcg/actuation HFA aerosol inhaler 2 puff inhalation Q4-6H PRN Label Comments: INHALE 2 PUFFS BY MOUTH EVERY 4 HOURS NEEDED omeprazole 40 mg capsule,delayed release(DR/EC) 40 mg PO DAILY Qty: 90 3RF fluoride (sodium) 1.1 % paste 1 applic PO DAILY clonazepam 0.5 mg tablet 0.5 mg PO Slynd 4 mg (28) tablet 4 mg PO DAILY Qty: 28 11RF azithromycin [Zithromax Z-Eliceo] 250 mg tablet See Rx Instructions PO .COMPLEX Qty: 6 1RF Rx Instructions: For 250 mg dose pack: take 500 mg today (day 1), then 250 mg for 4 days (days 2-5) PO metronidazole 500 mg tablet 500 mg PO BID Qty: 14 1RF fluconazole [Diflucan] 150 mg tablet 150 mg PO Q3D Qty: 2 1RF WesTab Plus 27 mg iron- 1 mg tablet See Rx Instructions .ROUTE .COMPLEX Qty: 30 11RF Dose Instruction: TAKE ONE TABLET BY MOUTH EVERY DAY Rx Instructions: TAKE ONE TABLET BY MOUTH EVERY DAY ondansetron 4 mg tablet,disintegrating 4 mg PO Q8H PRN (Reason: nausea and vomiting) Qty: 10 0RF Referrals Follow up/Referrals: Provider,Referral, MD [Primary Care Provider] - See instructions Activity Restrictions/Add. Instructions Additional Instructions/Restrictions: Drink plenty of fluids. Take tylenol or ibuprofen for pain or fever. Take the medications as directed. Follow up with your regular doctor. GO TO THE ER FOR ANY WORSENING SYMPTOMS Throw your tooth brush away and get a new one. Clinical Impressions Clinical Impression: Pharyngitis Instructions Patient Instructions: Strep Throat, DI for Strep Throat Discharge ED Provider: Doyle Ward [facility] [place] HPI General Stated complaint: sore throat Mode of Arrival: Ambulatory Source of Information: Patient Limitations: No Limitations Time Seen by Provider: 04/17/23 19:58 Description of Symptoms (Recalled from Triage Doc. by RN): Patient states she has strep symptoms. HEENT Symptoms (Recalled from RN notes): Yes Resp Symptoms (Recalled from RN notes): No Skin Symptoms (Recalled from RN notes): No MS Symptoms (Recalled from RN notes): No Functional Status (Recalled from RN notes): wnl History of Present Illness Provider Complaint: She states that for the past 1 week she has had a sore throat. She has been exposed to strep throat. Related Data Home Medications Medication Instructions Recorded Confirmed albuterol sulfate 90 mcg/actuation 2 puff inhalation Q4-6H PRN 08/14/22 11/16/22 aerosol inhaler (ProAir HFA) citalopram 40 mg tablet 20 mg PO BID 08/14/22 11/16/22 dextroamphetamine-amphetamine 15 15 mg PO DAILY 08/14/22 11/16/22 mg tablet (Adderall) clonazepam 0.5 mg tablet 0.5 mg PO 11/16/22 11/16/22 fluoride (sodium) 1.1 % dental 1 applic PO DAILY 11/16/22 11/16/22 paste Previous Rx's Medication Instructions Recorded omeprazole 40 mg capsule,delayed 40 mg PO DAILY #90 caps 08/14/22 release vitamin with calcium See Rx Instructions .Route 09/14/22 no.72-iron 27 mg-folic acid 1 mg .COMPLEX #30 tabs tablet (WesTab Plus) ondansetron 4 mg disintegrating 4 mg PO Q8H PRN nausea and 10/05/22 tablet vomiting #10 tabs drospirenone (contraceptive) 4 mg 4 mg PO DAILY #28 tabs 11/16/22 (28) tablet (Slynd) azithromycin 250 mg tablet See Rx Instructions PO .COMPLEX #6 11/24/22 (Zithromax Z-Eliceo) tabs fluconazole 150 mg tablet 150 mg PO Q3D 2 doses #2 tabs 11/24/22 (Diflucan) metronidazole 500 mg tab
[2023-04-17 20:10] LABS: UTC Strep Screen (Rapid) Negative (Negative)
[2023-04-17 20:12] VITALS: BP 112/78; PULSE 90; RESP 20; TEMP 36.7; O2SAT 99
== END 2023-04-17 20:13 | disposition home or self-care (01) ==
PROVIDERS: Emergency Provider Nurse Practitioner Family
DX: J02.9 Acute pharyngitis, unspecified (principal); F17.210 Nicotine dependence, cigarettes, uncomplicated
CPT/HCPCS: 87880; 99212; 99214; G0463

== ENCOUNTER 2023-05-19 00:16 | Emergency (ER) | payer OTHER, SELFPAY ==
[2023-05-19 00:19] VITALS: BP 136/90; PULSE 83; RESP 20; TEMP 36.8; O2SAT 97; BMI 23.8
[2023-05-19 00:31] VITALS: BP 126/83; PULSE 79; RESP 18; O2SAT 98
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
[2023-05-19 01:00] VITALS: BP 123/83; PULSE 80; RESP 18; O2SAT 100
[2023-05-19 01:30] VITALS: BP 116/80; PULSE 76; RESP 20; O2SAT 100
[2023-05-19 01:59] VITALS: BP 118/66; PULSE 83; RESP 18; TEMP 36.8; O2SAT 99
== END 2023-05-19 02:08 | disposition home or self-care (01) ==
PROVIDERS: Emergency Provider Emergency Medicine
DX: S13.4XXA Sprain of ligaments of cervical spine, initial encounter (principal); M25.551 Pain in right hip; M25.571 Pain in right ankle and joints of right foot; F41.9 Anxiety disorder, unspecified; F32.A Depression, unspecified; F90.9 Attention-deficit hyperactivity disorder, unspecified type; V40.0XXA Car driver injured in collision with pedestrian or animal in nontraffic accident, initial encounter
CPT/HCPCS: 73502; 73610; 73630; 96372; 99284

== ENCOUNTER 2023-11-15 19:38 | Emergency (ER) | payer OTHER, SELFPAY ==
[2023-11-15 19:40] VITALS: BP 112/69; PULSE 87; RESP 20; TEMP 36.8; O2SAT 99; BMI 24.7
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
[2023-11-15 20:28] LABS: Coronavirus 19, PCR Not Detected (NotDetected); Influenza A, PCR Not Detected (NotDetected)
[2023-11-15] MEDS: DEXAMETHASONE 4MG TABLET 10 MG PO (20:34)
[2023-11-15 20:47] VITALS: BP 123/73; PULSE 62; RESP 16; TEMP 36.9; O2SAT 97
--- NOTE | 2023-11-15 20:54 | HMH.EDGENADL ---
Discharge Plan Disposition Patient Disposition: Home, Self-Care Chief Complaint: Upper Respiratory Infection Prescriptions Prescriptions: No Action citalopram 40 mg tablet 20 mg PO BID omeprazole 40 mg capsule,delayed release(DR/EC) 40 mg PO DAILY Qty: 90 3RF Slynd 4 mg (28) tablet 4 mg PO DAILY Qty: 28 11RF metronidazole 500 mg tablet 500 mg PO BID Qty: 14 1RF WesTab Plus 27 mg iron- 1 mg tablet See Rx Instructions .ROUTE .COMPLEX Qty: 30 11RF Dose Instruction: TAKE ONE TABLET BY MOUTH EVERY DAY Rx Instructions: TAKE ONE TABLET BY MOUTH EVERY DAY cephalexin 500 mg capsule 500 mg PO BID Patient Comments: TAKE ONE (1) CAPSULE EVERY 12 HOURS BY ORAL ROUTE FOR 10 DAYS. dextroamphetamine-amphetamine [Adderall XR] 15 mg capsule,extended release 24hr 15 mg PO DAILY Patient Comments: TAKE ONE CAPSULE BY MOUTH EVERY DAY Referrals Follow up/Referrals: Giacomo Quevedo MD [Primary Care Provider] - See instructions Activity Restrictions/Add. Instructions Additional Instructions/Restrictions: Call your family doctor to establish care for this visit to the emergency department and schedule follow-up within 48 hours to ensure improvement. If you have any worsening of your condition or any other concerning signs or symptoms, return to the emergency department or your primary care doctor for further evaluation. Clinical Impressions Clinical Impression: Acute viral syndrome Discharge ED Provider: Tanner Andres General Adult HPI General Chief complaint: Upper Respiratory Infection Stated complaint: cough, fever, soa Time Seen by Provider: 11/15/23 19:43 Mode of Arrival: Ambulatory Source of Information: Patient Limitations: No Limitations Description of Symptoms (Recalled from ER Triage Doc. by RN): Cough and shortness of air since 11/14. History of Present Illness HPI narrative: 38-year-old female no relevant medical history presenting with cough. This has been going on since, yesterday. 11/14. Patient states is associated with shortness of breath due to cough, but cough is nonproductive. Her entire house is sick with similar symptoms. Patient has not had a fever or any other concerns. Presents with herself and her 3 children for similar symptoms. Related Data Home Medications Medication Instructions Recorded Confirmed citalopram 40 mg tablet 20 mg PO BID 08/14/22 11/15/23 cephalexin 500 mg capsule 500 mg PO BID 11/15/23 11/15/23 dextroamphetamine-amphetamine ER 15 mg PO DAILY 11/15/23 11/15/23 15 mg 24hr capsule,extend release (Adderall XR) Previous Rx's Medication Instructions Recorded omeprazole 40 mg capsule,delayed 40 mg PO DAILY #90 caps 08/14/22 release vitamin with calcium See Rx Instructions .Route 09/14/22 no.72-iron 27 mg-folic acid 1 mg .COMPLEX #30 tabs tablet (WesTab Plus) drospirenone (contraceptive) 4 mg 4 mg PO DAILY #28 tabs 11/16/22 (28) tablet (Slynd) metronidazole 500 mg tablet 500 mg PO BID #14 tabs 11/24/22 Allergies Allergy/AdvReac Type Severity Reaction Status Date / Time codeine Allergy Unknown I-HIVES Verified 07/08/23 11:38 [facility] Disclaimer: The information contained in this section may have been updated after the patient was seen, as this information can be updated by other users. Medical History ADHD Tobacco use Family History Other No significant family history Social History Smoking Status: Current every day smoker tobacco type: cigarettes packs per day: 1 second hand exposure: Yes alcohol intake: never current occupational status: employed Travel in the last 8 weeks: None housing: house ROS Obtained: Yes All systems reviewed & no additional complaints except as documented Physical Exam General General appearance: alert and in no apparent distress Head Head exam: atraumatic and normocephalic Eye Eye exam: Present normal appearance, PERRL and EOMI ENT ENT exam: Present mucous membranes moist Neck Neck exam: Present normal inspection, full ROM and trachea midline Respiratory Respiratory exam: Absent respiratory distress, wheezes, stridor, accessory muscle use or prolonged expiratory phase Cardiovascular Cardiovascular exam: Present normal rhythm Abdominal Exam Abdominal exam: Present soft; Absent distention, tenderness, guarding, rebound or rigidity Extremities Exam Extremities exam: Absent edema Neurological Exam Neurological exam: Present alert, oriented X3, CN II-XII intact and normal gait; Absent motor sensory deficit Skin Skin exam: Present warm and dry; Absent diaphoresis or erythema Medical Decision Making Medical Records Medical records reviewed: Yes I reviewed the patient's medical records. Abdulkadir Inquiry Pt receiving controlled substance: No Abdulkadir was queried for this patient: No Vital Signs: 11/15/23 19:40 11/15/23 20:47 Temperature 98.3 F 98.5 F Temperature Source Oral Oral Pulse Rate 62 Pulse Rate [Radial] 87 Respiratory Rate 20 16 Blood Pressure 123/73 Blood Pressure [Right Arm] 112/69 Blood Pressure Mean [Right Arm] 83 Blood Pressure Source Automatic Cuff Blood Pressure Source [Right Arm] Automatic Cuff Blood Pressure Position [Right Arm] Sitting 02 Sat by Pulse Oximetry 99 Oxygen Delivery Method Room Air Room Air Orders (Tests/Meds): ED MEDICATIONS Discontinued Medications Generic Name Dose Route Start Last Admin Trade Name Annabella PRN Reason Stop Dose Admin Dexamethasone 10 mg 11/15/23 20:22 11/15/23 20:34 Dexamethasone 4mg Tablet PO 11/15/23 20:23 10 mg ONCE ONE Administration ORDERS Category Date Time Status Rapid PCR Covid and Flu A/B Stat Lab 11/15/23 19:50 Received Medical Decision Narrative: 38-year-old female no relevant medical history presenting with cough. This has been going on since, yesterday. 11/14. Patient states is associated with shortness of breath due to cough, but cough is nonproductive. Her entire house is sick with similar symptoms. Patient has not had a fever or any other concerns. Presents with herself and her 3 children for similar symptoms. History obtained with patient. Physical exam nonconcerning, lungs clear to auscultation bilaterally without focal breath sounds or wheezes. Patient normotensive, nontachycardic, saturating appropriately. Intermittently coughing. She is afebrile. Differential includes viral syndrome, bronchitis, among others. Viral swab collected and sent, pending at time of discharge. Because patient at baseline without signs or symptoms of clinical decompensation, deemed appropriate for discharge. Results were relayed to patient who voiced understanding and were agreeable to outpatient management and follow up. At the time of discharge the patient was hemodynamically stable, tolerating PO, and mobilizing appropriately. Critical Care Critical Care Time Critical Care Time: No
[2023-11-15 21:25] LABS: Influenza B, PCR Detected (NotDetected)
== END 2023-11-15 21:02 | disposition home or self-care (01) ==
PROVIDERS: Emergency Provider Emergency Medicine; PCP Family Medicine
DX: R06.02 Shortness of breath (principal); R05.9 Cough, unspecified; B34.9 Viral infection, unspecified; F90.9 Attention-deficit hyperactivity disorder, unspecified type; F17.210 Nicotine dependence, cigarettes, uncomplicated
CPT/HCPCS: 87636; 99283